=== PATIENT | female | born 1990 | race Caucasian/White ===

== ENCOUNTER 2023-03-06 14:19 | Outpatient (CLI) | payer OTHER, SELFPAY ==
--- NOTE | ~2023-03-06 | XR_ITS ---
EXAMINATION: XR chest 2V DATE: 03/06/2023 17:14 INDICATION: Cough and shortness of breath TECHNIQUE: frontal and lateral views of the chest were obtained. COMPARISON: None FINDINGS: Small focal opacity projecting over the right upper lung zone. No other airspace opacities, pulmonary edema, pleural effusion or pneumothorax. The cardiomediastinal silhouette is normal. Visualized bone s and soft tissues are unremarkable. IMPRESSION: 1. Focal small airspace opacities in the right upper lung zone which could represent atelectasis and/ or pneumonia. Recommend radiographic follow-up to resolution. Reviewed, dictated and finalized at location A. [facility] IMPRESSION: 1. Focal small airspace opacities in the right upper lung zone which could repr esent atelectasis and/or pneumonia. Recommend radiographic follow-up to resolut ion.
== END 2023-03-06 14:20 ==
PROVIDERS: PCP Nurse Practitioner Family; Visit Provider Nurse Practitioner Family
DX: R05.9 Cough, unspecified (principal); R91.8 Other nonspecific abnormal finding of lung field
CPT/HCPCS: 71046